=== PATIENT | female | born 1985 | race Caucasian/White ===

== ENCOUNTER 2018-01-18 18:59 | Emergency (ER) | payer SELFPAY ==
[2018-01-18] MEDS ORDERED: fentaNYL 100 MCG/2 ML INJ IVP ONE (19:10)
[2018-01-18] MEDS ORDERED: ONDANSETRON 4 MG/2 ML VIAL ONE (19:10)
[2018-01-18] MEDS ORDERED: ONDANSETRON 4 MG/2 ML VIAL IVP ONE ×3 (19:10→20:54)
[2018-01-18] MEDS ORDERED: fentaNYL 100 MCG/2 ML INJ ONE (19:10)
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
[2018-01-18] MEDS ORDERED: HYDROmorphONE/DILAUDID 2 MG/ML INJ ONE (19:49)
[2018-01-18] MEDS ORDERED: HYDROmorphONE/DILAUDID 2 MG/ML INJ IVP ONE (19:50)
[2018-01-18] MEDS ORDERED: KETOROLAC 30 MG/1 ML SDV ONE (20:37)
[2018-01-18] MEDS ORDERED: OXYCODONE/APAP 5/325MG PREPACK#4 BTL TAKEHOME ONE (20:38)
[2018-01-18] MEDS ORDERED: CYCLOBENZAPRINE 10MG PREPACK#3 BTL TAKEHOME ONE (20:38)
[2018-01-18] MEDS ORDERED: KETOROLAC 30 MG/1 ML SDV IVP ONE (20:40)
[2018-01-18] MEDS ORDERED: ONDANSETRON 4MG PREPACK#2 BTL TAKEHOME ONE (21:02)
[2018-01-18 23:14] VITALS: BP 121/77
== END 2018-01-18 23:00 | disposition home or self-care (01) ==
DX: S42.022A Displaced fracture of shaft of left clavicle, initial encounter for closed fracture (principal); S52.532A Colles' fracture of left radius, initial encounter for closed fracture; S52.612A Displaced fracture of left ulna styloid process, initial encounter for closed fracture; T14.8XXA Other injury of unspecified body region, initial encounter; V18.4XXA Pedal cycle driver injured in noncollision transport accident in traffic accident, initial encounter; Y92.410 Unspecified street and highway as the place of occurrence of the external cause; Y99.8 Other external cause status; Y93.55 Activity, bike riding
CPT/HCPCS: 96374; A4565; J1170; J1885; J2405; J3010